=== PATIENT | female | born 1945 | race Two or more races ===

== ENCOUNTER → 2022-07-17 | Emergency (ER) | payer OTHER ==
[~2022-07-17] VITALS: Ht 160 cm; Wt 83.9 kg
[~2022-07-17] MED LIST: CLEOCIN HCL300 MG PO; KETO10TA2 PO
== END | disposition home or self-care (01) ==
LOC: ER 15:33
DX: K04.7 Periapical abscess without sinus (principal); Z88.8 Allergy status to other drugs, medicaments and biological substances

== ENCOUNTER 2023-11-30 09:57 | Outpatient (CLI) | payer OTHER | END 2023-11-30 10:04 | disposition home or self-care (01) | LOC: RAD 09:57 | DX: M25.561 Pain in right knee (principal); M25.562 Pain in left knee ==